=== PATIENT | female | born 1955 | race Native Hawaiian/Other Pacific Islander ===

== ENCOUNTER 2019-12-29 22:14 | Emergency (ER) | payer OTHER ==
[~2019-12-29] VITALS: Ht 154.9 cm; Wt 121.6 kg
[2019-12-29 23:11] LABS: PLATELET COUNT 377 K/uL (152-353); POTASSIUM 3.8 mmol/L (3.6-5.2)
[2019-12-29 23:25] VITALS: BP 161/74; TEMP 99
== END 2019-12-29 23:26 | disposition home or self-care (01) ==
LOC: ED 22:14
PROVIDERS: Family Medicine
DX: E11.42 Type 2 diabetes mellitus with diabetic polyneuropathy (principal); E86.0 Dehydration
CPT/HCPCS: 80053; 85027; 96374; 99284; J2930

== ENCOUNTER 2020-05-06 08:56 | Outpatient (CLI) | payer OTHER ==
[~2020-05-06] VITALS: Ht 154.9 cm; Wt 122.5 kg
== END 2020-05-06 19:47 | disposition home or self-care (01) ==
LOC: NM 08:56
PROVIDERS: ATTEND Specialist
DX: R07.89 Other chest pain (principal)
CPT/HCPCS: A9500; J2785

== ENCOUNTER 2020-07-21 12:50 | Outpatient (CLI) | payer OTHER | END 2020-07-21 19:55 | disposition home or self-care (01) | LOC: RAD 12:50 | PROVIDERS: ATTEND Nurse Practitioner Family | DX: M25.551 Pain in right hip (principal); M25.552 Pain in left hip; M54.5 Low back pain ==

== ENCOUNTER 2020-08-08 11:20 | Outpatient (CLI) | payer OTHER ==
[2020-08-08 11:31] LABS: PLATELET COUNT 356 K/uL (152-353)
[2020-08-08 11:41] LABS: POTASSIUM 4.1 mmol/L (3.6-5.2)
== END 2020-08-08 20:07 | disposition home or self-care (01) ==
LOC: LABW 11:20
PROVIDERS: ATTEND Specialist
DX: Z01.810 Encounter for preprocedural cardiovascular examination (principal); R94.39 Abnormal result of other cardiovascular function study
CPT/HCPCS: 36415; 80053; 85027

== ENCOUNTER 2020-08-20 13:42 | Emergency (ER) | payer OTHER ==
[~2020-08-20] VITALS: Ht 154.9 cm; Wt 122.5 kg
[2020-08-20 15:30] VITALS: BP 125/72; TEMP 98.5
== END 2020-08-20 15:30 | disposition home or self-care (01) ==
LOC: ED 13:42
DX: S43.004A Unspecified dislocation of right shoulder joint, initial encounter (principal); W18.2XXA Fall in (into) shower or empty bathtub, initial encounter; Y92.091 Bathroom in other non-institutional residence as the place of occurrence of the external cause
CPT/HCPCS: 96372; 99282; 99283; J1885

== ENCOUNTER 2022-07-04 05:27 | Emergency (ER) | payer OTHER ==
[~2022-07-04] VITALS: Ht 170.2 cm; Wt 122.5 kg
[2022-07-04 05:30] VITALS: TEMP 98.4
[2022-07-04 07:17] VITALS: BP 174/73
== END 2022-07-04 07:21 | disposition home or self-care (01) ==
LOC: ED 05:27
DX: S00.83XA Contusion of other part of head, initial encounter (principal); W17.89XA Other fall from one level to another, initial encounter
CPT/HCPCS: 99283